=== PATIENT | male | born 1945 | race Caucasian/White ===

== ENCOUNTER 2019-02-07 10:49 | Day surgery (SDC) | payer MEDICARE, OTHER ==
[2019-02-07] MEDS ORDERED: PROPOFOL 10 MG/ML VIAL IV ONE (10:50)
[2019-02-07] MEDS ORDERED: LIDOCAINE 2% MDV (20MG/ML) 20ML VIAL IV ONE (10:50)
--- NOTE | 2019-02-08 08:00 | Operative Note ---
OPERATION: Screening COLONOSCOPY. PREOPERATIVE DIAGNOSIS: Colon cancer screening, average risk, 10-year interval. POSTOPERATIVE DIAGNOSES: 1. Fair prep. 2. Sigmoid diverticulosis. ESTIMATED BLOOD LOSS: None. SPECIMENS: None. PREPARATION QUALITY: Fair. COMPLICATIONS: None apparent. PROCEDURE: After informed consent was obtained from the patient, he was placed in the left lateral decubitus position in the endoscopy suite, sedated and monitored by the department of anesthesia. Digital rectal exam was unremarkable. A well-lubricated [id number] colonoscope was inserted into the rectum and advanced to the cecum. Preparation quality was fair at best. Particulate matter could not be completely cleared from the view. Numerous areas were lavaged and fluid evacuated but semi-particulate and particulate matter remained despite rinsing and aspiration. Small polyps may have been obscured. Generally, no large abnormalities were seen throughout the colon. The cecum and cecal bulb were entered several times. The ileocecal valve, ascending colon, transverse colon, descending colon, sigmoid colon, and rectum were unremarkable other than [id number] diverticular changes in the sigmoid colon. The rectum was unremarkable in forward and J-turn views. The endoscope was straightened, the rectal ampulla deflated, and the endoscope was removed. RECOMMENDATIONS: The patient should follow a high-fiber diet. I would recommend a repeat exam in 3 years based on fair prep quality. As always, thank you for allowing me to participate in the healthcare of your patients. CC: DO ISABEL Nelson
== END 2019-02-07 12:40 | disposition home or self-care (01) ==
LOC: HOP 10:49
PROVIDERS: ATTEND Internal Medicine Gastroenterology
DX: Z12.11 Encounter for screening for malignant neoplasm of colon (principal); K57.30 Diverticulosis of large intestine without perforation or abscess without bleeding; G25.81 Restless legs syndrome
CPT/HCPCS: 00812; G0121